=== PATIENT | female | born 1990 | race Caucasian/White ===

== ENCOUNTER 2018-04-05 09:56 | Emergency (ER) | payer OTHER ==
[2018-04-05] MEDS: CHLORDIAZEPOXIDE 25 MG CAP PO (11:17)
[2018-04-05] MEDS: LORAZEPAM 1 MG TAB PO (11:17)
== END 2018-04-05 12:15 | disposition home or self-care (01) ==
LOC: E/R 09:56
DX: F10.230 Alcohol dependence with withdrawal, uncomplicated (principal); Z87.891 Personal history of nicotine dependence
CPT/HCPCS: 99283; Z7502

== ENCOUNTER 2018-07-30 08:01 | Emergency (ER) | payer SELFPAY, OTHER | END 2018-07-30 10:30 | disposition left against medical advice (07) | LOC: E/R 08:01 | DX: Z53.21 Procedure and treatment not carried out due to patient leaving prior to being seen by health care provider (principal) ==